=== PATIENT | male | born 1965 | race Caucasian/White ===

== ENCOUNTER 2019-12-21 11:39 | Emergency (ER) | payer OTHER ==
[~2019-12-21] VITALS: Ht 175.3 cm; Wt 68.0 kg
[2019-12-21 11:58] VITALS: BP_SYST 122
--- NOTE | 2019-12-21 11:58 | NUR ---
PT CAME TO ER FOR LOW BACK PAIN AND WEAKNESS. RESTING IN [facility] AWAITING .
--- NOTE | 2019-12-21 11:58 | NUR ---
Patient to ER bed 7 to gown for evaluation. Side rails up.
--- NOTE | 2019-12-21 12:05 | NUR ---
ER at bedside examining patient.
[2019-12-21 12:45] VITALS: BP_SYST 122
--- NOTE | 2019-12-21 12:45 | NUR ---
Patient given written and verbal discharge instructions and verbalizes understanding. ER MD discussed with patient the results and treatment provided. Patient in stable condition. ID arm band removed. Patient educated on pain management and to follow up with PMD. Pain Scale 0/10. Opportunity for questions provided and answered. Medication side effect fact sheet provided.
== END 2019-12-21 12:45 | disposition home or self-care (01) ==
LOC: SED 11:39
DX: F41.9 Anxiety disorder, unspecified (principal); R42 Dizziness and giddiness; R53.1 Weakness
CPT/HCPCS: 99283